=== PATIENT | male | born 1970 | race African-American/Black ===

== ENCOUNTER 2020-03-23 12:16 | Emergency (ER) | payer MEDICAID ==
[~2020-03-23] VITALS: Ht 180.3 cm; Wt 97.1 kg
[2020-03-23 12:16] VITALS: BP 114/84
--- NOTE | 2020-03-23 12:24 | NUR ---
ED Nurse Note: pt FERNANDO GUZMANSarah RA 67 from home s/p fall. pt reports that he slipped and fell last PM, landing in a "split" position. he now cannot move his L leg, states that pain is from the knee and above. pt reports that he has been lying on the ground since last PM because he cannot get up. pt denies loss of bowel or bladder function, states that he "peed into a bucket 3 times since last night." there is significant DROM of LLE from knee up. pt denies head trauma or injury
[2020-03-23] MEDS ORDERED: Ketorolac 30mg Inj IV ONE (12:30)
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
[2020-03-23] MEDS ORDERED: Morphine Sulfate 4mg/ml Inj (IV USE ONLY) IVP ONE ×2 (14:00→18:00)
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
--- NOTE | 2020-03-23 14:08 | NUR ---
ED Nurse Note: pt being transported to CT via gurney. states that he will have a friend come pick him up if/once discharged
[2020-03-23 14:16] LABS: BASOPHILS % (AUTO) 0.7 % (0.0-2.0); EOSINOPHILS % (AUTO) 0.1 % (0.0-3.0); HEMATOCRIT 47.4 % (42.0-52.0); HEMOGLOBIN 16.3 G/DL (14.2-18.0); LYMPHOCYTES % (AUTO) 25.5 % (20.0-45.0); MEAN CORPUSCULAR VOLUME 110 FL (80-99); MONOCYTES % (AUTO) 4.2 % (1.0-10.0); NEUTROPHILS % (AUTO) 69.4 % (45.0-75.0); PLATELET COUNT 235 K/UL (150-450); RED CELL DISTRIBUTION WIDTH 12.9 % (11.6-14.8); WHITE BLOOD COUNT 11.8 K/UL (4.8-10.8)
[2020-03-23 14:26] LABS: ANION GAP 17 mmol/L (5-15); BLOOD UREA NITROGEN 7 mg/dL (7-18); CALCIUM 8.4 MG/DL (8.5-10.1); CARBON DIOXIDE 19 MMOL/L (21-32); CHLORIDE 105 MMOL/L (98-107); CREATININE 0.9 MG/DL (0.55-1.30); POTASSIUM 3.5 MMOL/L (3.5-5.1); SODIUM 141 MMOL/L (136-145)
[2020-03-23 14:30] LABS: ALANINE AMINOTRANSFERASE 34 U/L (12-78); ALBUMIN 3.8 G/DL (3.4-5.0); ALKALINE PHOSPHATASE 134 U/L (46-116); ASPARTATE AMINO TRANSFERASE 28 U/L (15-37); BILIRUBIN,TOTAL 0.7 MG/DL (0.2-1.0)
--- NOTE | 2020-03-23 15:17 | Diagnostic Imaging Report ---
EXAM: CT Left Lower Extremity Without Intravenous Contrast, Hip CLINICAL HISTORY: PAIN TECHNIQUE: Axial computed tomography images of the left hip without intravenous contrast. CTDI is 9.2 mGy and DLP is 342.2 mGy-cm. One or more of the following dose reduction techniques were used: automated exposure control, adjustment of the mA and/or kV according to patient size, use of iterative reconstruction technique. COMPARISON: Left femur radiographs on FINDINGS: Bones/joints: No acute fracture or dislocation identified. Atrophy of some of the left hip muscles. Intramedullary elo and screw fixation in the left femur. Degenerative changes of the visualized lower lumbar spine. Mild retrolisthesis of L5 on S1. Soft tissues: Small metallic densities in the soft tissues about the left hip. Bowel: Postsurgical changes of the bowel. Bladder: Distended bladder. No significant bladder wall thickening or stone. IMPRESSION: No acute fracture or dislocation identified.
[2020-03-23] MEDS ORDERED: Methocarbamol 750mg tab ORAL ONE (15:45)
[2020-03-23 17:00] VITALS: BP 117/86
--- NOTE | 2020-03-23 18:39 | NUR ---
ED Nurse Note: report given to DOM Price. [facility][id number] here to transport pt
[2020-03-23 18:55] VITALS: BP 117/86
== END 2020-03-23 18:55 | disposition short-term general hospital (02) ==
LOC: EDBD 12:16 → EMR 12:42
DX: S76.902A Unspecified injury of unspecified muscles, fascia and tendons at thigh level, left thigh, initial encounter (principal); W19.XXXA Unspecified fall, initial encounter; Y92.9 Unspecified place or not applicable
CPT/HCPCS: 36415; 73552; 73700; 80053; 85025; 85610; 85730; 96374; 96375; 96376; J1885; J2270; Z7502; 99284